=== PATIENT | male | born 1955 | race Caucasian/White ===

== ENCOUNTER 2017-11-09 22:04 | Inpatient (IN) | payer OTHER ==
[~2017-11-09] VITALS: Ht 195.6 cm; Wt 117.5 kg
[~2017-11-09 22:04] MED LIST: ASPIR-TRIN325 M1 PO; Aspirin PO; Keflex PO; LOPRESSOR100 M1 PO; LOTREL 10/21 CAPSULE PO; LOTREL 5/101 CAPSULE PO; LOTREL 5/201 CAPSULE PO; MITIGARE0.6 MG PO; Motrin PO; ULTRAM50 MG PO; ZYLOPRIM100 MG PO
[2017-11-10] MEDS ORDERED: ADVIL,NUPRIN,M200 MG PO (10:59)
[2017-11-10 11:02] VITALS: BP 128/62
[2017-11-10 11:10] VITALS: BP 128/62
[2017-11-10 17:30] VITALS: BP 139/77
[2017-11-10 19:48] VITALS: BP 136/74
[2017-11-10 23:46] VITALS: BP 127/66
[2017-11-11 02:39] VITALS: BP 137/77
[2017-11-11 07:00] VITALS: BP 146/71
[2017-11-11 08:29] LABS: BASOPHIL (%) 0 % (0-1); EOSINOPHIL (%) 0 % (0-5); HEMATOCRIT 38.2 % (38.0-50.0); HEMOGLOBIN 13.2 G/DL (12.5-16.6); IMMATURE GRANULOCYTE (%) 0.3 % (0.0-0.7); LYMPHOCYTE COUNT 1.3 K/uL (1.0-2.8); MCH 34.4 PG (29.0-34.0); MCHC 34.6 G/DL (30.0-36.0); MCV 99.5 FL (86-99); MONOCYTE (%) 3.8 % (3-12); MONOCYTE COUNT 0.4 K/uL (0-0.8); NEUTROPHIL (%) 82.9 % (45-76); NEUTROPHIL COUNT 8.2 K/uL (1.8-6.4); PLATELET COUNT 139 K/uL (156-360); RED BLOOD COUNT 3.84 M/uL (4.00-5.50); WHITE BLOOD COUNT 9.8 K/uL (4.1-10.2)
[2017-11-11 09:06] LABS: CHLORIDE 104 MEQ/L (99-109); CREATININE 0.8 MG/DL (0.6-1.3); GFR ESTIMATE (CALCULATED) > 59 mL/min/ (58.99-99999); GLUCOSE 180 mg/dL (70-99); SODIUM 140 MEQ/L (136-147); UREA NITROGEN (BUN) 9 mg/dL (9-23)
[2017-11-11] MEDS ORDERED: NORCO 5/3251 TABLET PO (10:43)
[2017-11-11 11:10] VITALS: BP 139/64
[2017-11-11 15:30] VITALS: BP 120/62
[2017-11-11 20:48] VITALS: BP 139/68
[2017-11-11 23:21] VITALS: BP 140/76
[2017-11-12 04:14] VITALS: BP 153/68
[2017-11-12 07:15] VITALS: BP 134/81
[2017-11-12 09:16] LABS: HEMOGLOBIN 13.4 G/DL (12.5-16.6); MCH 34.2 PG (29.0-34.0); MCHC 34.4 G/DL (30.0-36.0); MCV 99.5 FL (86-99); PLATELET COUNT 130 K/uL (156-360); RBC DIS.WIDTH-CV 13.1 % (11.8-14.6); RED BLOOD COUNT 3.92 M/uL (4.00-5.50); WHITE BLOOD COUNT 7.1 K/uL (4.1-10.2)
[2017-11-12 09:38] LABS: ALBUMIN 3.9 G/DL (3.2-4.8); ALKALINE PHOSPHATASE 41 IU/L (3-129); ALT (GPT) 58 IU/L (3-49); AST (GOT) 34 IU/L (2-34); C-REACTIVE PROTEIN 11.9 MG/L (0-10); CHLORIDE 103 MEQ/L (99-109); CREATININE 0.7 MG/DL (0.6-1.3); GFR ESTIMATE (CALCULATED) > 59 mL/min/ (58.99-99999); GLUCOSE 135 mg/dL (70-99); POTASSIUM 3.5 MEQ/L (3.7-5.4); SODIUM 140 MEQ/L (136-147); TOTAL PROTEIN 6.3 G/DL (6.4-8.3); UREA NITROGEN (BUN) 7 mg/dL (9-23)
[2017-11-12 09:44] LABS: TOTAL BILIRUBIN 1.2 MG/DL (0.0-1.0)
== END 2017-11-12 14:43 | disposition home or self-care (01) | DRG 544 ==
LOC: ENRESERV 22:04 → CANRESERV 22:04 → 5EAST 11-10 10:14 → 2SOUTH 11-10 10:14 → ENRESERV 11-10 16:02 → 2SOUTH 11-10 16:15 → 5EAST 11-10 17:10
PROVIDERS: Physician Assistant; Student in an Organized Health Care Education/Training Program
PROC: 0DBL4ZX Excision of Transverse Colon, Percutaneous Endoscopic Approach, Diagnostic (ICD-10-PCS; principal; 2017-11-10)
DX: C49.A4 Gastrointestinal stromal tumor of large intestine (principal); I10 Essential (primary) hypertension; K21.9 Gastro-esophageal reflux disease without esophagitis; Z95.2 Presence of prosthetic heart valve; M10.9 Gout, unspecified; E66.9 Obesity, unspecified; F17.200 Nicotine dependence, unspecified, uncomplicated; Z68.30 Body mass index [BMI] 30.0-30.9, adult
CPT/HCPCS: 36415; 80048; 80053; 81003; 85025; 85027; 86140; 86850; 86900; 86901; 88307; 94799; J0330; J1100; J1170; J1650; J2001; J2250; J2405; J2710; J2795; J3010; J3475; J7120; J7643; S0074